=== PATIENT | female | born 1970 | race Caucasian/White ===

== ENCOUNTER → 2019-06-20 | Outpatient (CLI) | payer OTHER, SELFPAY ==
--- NOTE | 2019-06-25 08:18 | REPMRS ---
Patient History The patient states she has not had a clinical breast exam in over a year. Family history of unknown cancer in mother. Patient states that she has had 2 stereotactic breast bx's on the right , both were neg. Digital Woman Screen Mammo: June 20, 2019 - Exam #: [id number] Bilateral CC and MLO view(s) were taken. Technologist: Haley Haines, Technologist Prior study comparison: May 18, 2018, bilateral digital woman screen mammo, performed at [facility]. March 06, 2017, bilateral digital woman screen mammo, performed at [facility]. May 28, 2015, bilateral digital woman screen mammo, performed at [facility]. FINDINGS: The breast tissue is heterogeneously dense. This may lower the sensitivity of mammography. There are needle biopsy marker clips again noted in the right lateral breast. There is a moderate amount of heterogeneously dense fibroglandular tissue which is fairly symmetric. There is no interval development of dominant mass, architectural distortion, or grouped microcalcification typical of malignancy. There has been no change in the appearance of the mammogram from the prior studies. Assessment: BI-RADS/ACR category 2 mammogram. Benign Findings. Recommendation Routine screening mammogram of both breasts in 1 year (for women over age 40). This patient's Lifetime Breast Cancer RIsk is estimated at 9.1 %. This mammogram was interpreted with the aid of an FDA-approved computer-aided dectection system. Electronically Signed By: Hadley Veloz MD 06/25/19 0818
== END ==
LOC: M WHC 15:15
PROVIDERS: ATTEND Family Medicine
DX: Z12.31 Encounter for screening mammogram for malignant neoplasm of breast (principal); Z80.8 Family history of malignant neoplasm of other organs or systems; Z86.018 Personal history of other benign neoplasm

== ENCOUNTER → 2019-07-11 | Outpatient (REF) | payer OTHER | LOC: M LAB REF 13:30 | PROVIDERS: ATTEND Otolaryngology | DX: J32.4 Chronic pansinusitis (principal) ==

== ENCOUNTER → 2019-07-17 | Outpatient (CLI) | payer OTHER ==
--- NOTE | 2019-07-17 16:18 | REPVR ---
PROCEDURE INFORMATION: Exam: CT Maxillofacial Without Contrast, Sinus Exam date and time: 07/17/2019 3:58 PM Age: 48 years old Clinical indication: Sinusitis; Type not specified; Additional info: Chronic pansinusitis TECHNIQUE: Imaging protocol: CT Maxillofacial without contrast. Focus on the sinuses. Radiation optimization: All CT scans at this facility use at least one of these dose optimization techniques: automated exposure control; mA and/or kV adjustment per patient size (includes targeted exams where dose is matched to clinical indication); or iterative reconstruction. COMPARISON: No relevant prior studies available. FINDINGS: Frontal sinuses: Normal. No air-fluid levels. Ethmoid air cells: Normal. No air-fluid levels. Sphenoid sinuses: Normal. No air-fluid levels. Maxillary sinuses: Normal. No air-fluid levels. Ostiomeatal units are patent. Orbits: Orbits are normal. Globes are unremarkable. Nasal cavity/Septum: Unremarkable. Soft tissues: Unremarkable. Bones/joints: Unremarkable. IMPRESSION: Unremarkable sinuses. Electronically signed by: Rogers Pérez On 07/17/2019 16:18:02 PM
== END ==
LOC: M RAD 15:51
PROVIDERS: ATTEND Otolaryngology
DX: J32.4 Chronic pansinusitis (principal)

== ENCOUNTER → 2020-05-17 | Outpatient (CLI) | payer OTHER | LOC: M LABSMTC 09:10 | PROVIDERS: ATTEND Nurse Practitioner Family | DX: Z20.828 Contact with and (suspected) exposure to other viral communicable diseases (principal) ==

== ENCOUNTER 2020-12-24 13:19 | Emergency (ER) | payer OTHER ==
[~2020-12-24] VITALS: Ht 162.6 cm; Wt 75.0 kg
[2020-12-24] MEDS ORDERED: POLY510P14 PO (13:30)
[2020-12-24] MEDS ORDERED: TRAZ1TAB14 (13:30)
[2020-12-24] MEDS ORDERED: WELLTAB40 PO ×2 (13:30)
[2020-12-24] MEDS ORDERED: MM S100C PO (13:30)
--- NOTE | 2020-12-24 14:24 | REP ---
INDICATION: abd pain. COMPARISON: None. TECHNIQUE: Single AP supine view of the abdomen. FINDINGS: There is a 6.7 cm calcified mass in the pelvis on the right compatible with a large calcified uterine fibroid. There are bilateral tubal ligation clips in the pelvis. There are abdominal right upper quadrant surgical clips. There is a 5.6 mm calcification left lateral to the lumbar spine at the L1-2 level. Possibly a renal/ureteral calculus. There is a large volume of fecal residue throughout the ascending and descending colon. The skeletal structures are unremarkable. 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 IMPRESSION: Large volume of fecal residue throughout the colon. Calculus to the left of the spine, possibly renal/ureteral. Large calcified fibroid in the pelvis. Surgical clips in the abdominal right upper quadrant surgical clips in the pelvis. <Electronically signed by Neal Fonseca > 12/24/20 [id number]
[2020-12-24] MEDS ORDERED: ONDANSETRON 4MG/2ML VIAL IV ONE (14:40)
[2020-12-24] MEDS ORDERED: NS 1,000 ML IV ONE (14:40)
[2020-12-24] MEDS ORDERED: KETOROLAC 30 MG/ML 1ML VIAL IV ONE (14:40)
[2020-12-24] MEDS ORDERED: ISOVUE-370 76% 100ML VIAL As Ordered ONE (15:02)
[2020-12-24 15:13] LABS: BASO % 0.4 % (0.0-1.0); EOS % 0.3 % (0.0-3.0); HEMATOCRIT 34.8 % (36.0-47.0); HEMOGLOBIN 11.9 g/dl (12.0-15.5); LYMPH # 1.1 10^3/uL (1.5-5.0); LYMPH % 9.6 % (24.0-44.0); MEAN CORPUSCULAR HEMOGLOBIN 30.6 pg (27.0-33.0); MEAN CORPUSCULAR HGB CONC 34.2 g/dl (32.0-36.5); MEAN CORPUSCULAR VOLUME 89.5 fl (80.0-96.0); MONO # 0.5 10^3/uL (0.0-0.8); MONO % 4.2 % (2.0-8.0); NEUTROPHILS # 9.7 10^3/uL (1.5-8.5); NEUTROPHILS % 85.1 % (36.0-66.0); PLATELET COUNT, AUTOMATED 236 10^3/uL (150-450); RED BLOOD COUNT 3.89 10^6/uL (4.00-5.40); WHITE BLOOD COUNT 11.4 10^3/uL (4.0-10.0)
--- NOTE | 2020-12-24 15:33 | REP ---
INDICATION: severe LLQ pain, last bm 14 days, no bowel sounds. COMPARISON: None. TECHNIQUE: Standard helical technique after the intravenous administration of 100 cc Isovue 370. No oral bowel preparatory contrast was administered prior to the exam. FINDINGS: The lung bases are clear. The liver, spleen, pancreas, adrenal glands, and right kidney are within normal limits. Seen in the ureteropelvic junction on the left there is an oval-shaped 8 mm sized calcification. This is causing mild hydronephrosis and Maria nephric stranding. There is no evidence of additional renal or ureteral calculi. The abdominal aorta and para-aortic regions are within normal limits. Limited evaluation of the bowel loops and the mesenteries show no gross abnormalities. There is no evidence of free fluid or free air. Seen in the right hemipelvis there is a 5 cm sized partially calcified round structure which is abutting or arising from the uterine body. Bone window technique throughout the examination shows the osseous structures to be within normal limits. IMPRESSION: 1. There is a calculus in the left ureteropelvic junction as described above with resultant findings. 2. Likely calcified uterine myomatous change as described above. There are no priors comparison. <Electronically signed by Jimmy Vaughn > 12/24/20 [id number]
[2020-12-24 15:39] LABS: ALBUMIN 4.1 GM/DL (3.2-5.2); BILIRUBIN,DIRECT 0.1 MG/DL (0.0-0.2); BILIRUBIN,TOTAL 0.4 MG/DL (0.2-1.0); TOTAL PROTEIN 7.5 GM/DL (6.4-8.2)
[2020-12-24] MEDS ORDERED: FLEET OIL RETENTION ENEMA PR STA (16:01)
[2020-12-24] MEDS ORDERED: LACTULOSE 20 GM/30 ML SYRUP UD PO ONE (16:05)
[2020-12-24] MEDS ORDERED: TAMSULOSIN 0.4 MG CAP PO ONE (16:20)
[2020-12-24] MEDS ORDERED: MAGNESIUM CITRATE 300 ML BTL PO ONE (20:05)
[2020-12-24 22:24] VITALS: BP 123/66
[2020-12-24] MEDS ORDERED: LACT20EL PO (22:46)
[2020-12-24] MEDS ORDERED: ENEMENE PR (22:46)
[2020-12-24] MEDS ORDERED: FLOM0.4C39 PO (22:49)
--- NOTE | 2020-12-25 12:55 | ED PDOC ---
Post-Departure Follow-Up radiology repor tfaxed to [facility] Marichuy Iraheta MD Dec 25, 2020 12:55
== END 2020-12-24 23:11 | disposition home or self-care (01) ==
LOC: M ED 13:19
DX: K59.00 Constipation, unspecified (principal); N20.1 Calculus of ureter; Z87.42 Personal history of other diseases of the female genital tract; Z88.5 Allergy status to narcotic agent; Z79.899 Other long term (current) drug therapy
CPT/HCPCS: 74018; 74177; 80047; 80076; 81001; 83605; 83690; 85025; 87040; 87077; 87186; 96374; 96375; 99284; J1885; J2405; Q9967

== ENCOUNTER 2020-12-26 20:33 | Inpatient (IN) | payer OTHER ==
[~2020-12-26] VITALS: Ht 165.1 cm; Wt 77.9 kg
[~2020-12-26 20:33] MED LIST: ENEMENE PR; FLOM0.4C39 PO; LACT20EL PO; MM S100C PO; POLY510P14 PO; TRAZ1TAB14; WELLTAB40 PO
[2020-12-26] MEDS ORDERED: NS 1,000 ML IV ONE (21:25)
[2020-12-26] MEDS ORDERED: ONDANSETRON 4MG/2ML VIAL IV ONE (21:25)
[2020-12-26] MEDS ORDERED: KETOROLAC 30 MG/ML 1ML VIAL IV ONE (21:25)
[2020-12-26 22:14] LABS: BASO % 0.5 % (0.0-1.0); EOS # 0.1 10^3/uL (0.0-0.5); EOS % 1.8 % (0.0-3.0); HEMATOCRIT 30.6 % (36.0-47.0); HEMOGLOBIN 10.4 g/dl (12.0-15.5); LYMPH # 1.1 10^3/uL (1.5-5.0); MEAN CORPUSCULAR HEMOGLOBIN 30.8 pg (27.0-33.0); MEAN CORPUSCULAR VOLUME 90.5 fl (80.0-96.0); MONO # 0.6 10^3/uL (0.0-0.8); MONO % 7.6 % (2.0-8.0); NEUTROPHILS # 5.5 10^3/uL (1.5-8.5); NEUTROPHILS % 74.8 % (36.0-66.0); PLATELET COUNT, AUTOMATED 146 10^3/uL (150-450); RED BLOOD COUNT 3.38 10^6/uL (4.00-5.40); WHITE BLOOD COUNT 7.4 10^3/uL (4.0-10.0)
[2020-12-26 22:39] LABS: ALBUMIN 3.2 GM/DL (3.2-5.2); ALT/SGPT 23 U/L (12-78); BILIRUBIN,DIRECT 0.1 MG/DL (0.0-0.2); BILIRUBIN,TOTAL 0.5 MG/DL (0.2-1.0); BLOOD UREA NITROGEN 12 MG/DL (7-18); CARBON DIOXIDE LEVEL 23 MEQ/L (21-32); CHLORIDE LEVEL 108 MEQ/L (98-107); CREATININE FOR GFR 1.67 MG/DL (0.55-1.30); GLOMERULAR FILTRATION RATE 34.4 (>51); GLUCOSE, FASTING 99 MG/DL (70-100); LIPASE 93 U/L (73-393); POTASSIUM SERUM 3.6 MEQ/L (3.5-5.1); SODIUM LEVEL 139 MEQ/L (136-145); TOTAL PROTEIN 6.1 GM/DL (6.4-8.2)
[2020-12-26] MEDS ORDERED: ISOVUE-370 76% 100ML VIAL As Ordered ONE (22:51)
--- NOTE | 2020-12-26 23:26 | REPVR ---
PROCEDURE INFORMATION: Exam: CT Abdomen And Pelvis With Contrast Exam date and time: 12/26/2020 10:55 PM Age: 50 years old Clinical indication: Abdominal pain; Localized; Left lower quadrant (llq); Additional info: Llq pain; HX of kidney stones TECHNIQUE: Imaging protocol: Computed tomography of the abdomen and pelvis with contrast. Radiation optimization: All CT scans at this facility use at least one of these dose optimization techniques: automated exposure control; mA and/or kV adjustment per patient size (includes targeted exams where dose is matched to clinical indication); or iterative reconstruction. Contrast material: ISOVUE 370; Contrast volume: 100 ml; Contrast route: INTRAVENOUS (IV); COMPARISON: CT ABD/PEL W/IV CONTRAST ONLY 12/24/2020 3:09 PM FINDINGS: Lungs: Minimal bibasilar fibro-atelectatic change. Liver: Normal. No mass. Gallbladder and bile ducts: Status post cholecystectomy. Pancreas: Normal. No ductal dilation. Spleen: Normal. No splenomegaly. Adrenal glands: Normal. No mass. Kidneys and ureters: Minimal nonobstructing left renal calculus in the lower pole. Delayed left nephrogram with persistent contrast in the left renal collecting system since the prior study with moderate left hydronephrosis which extends to a proximal left ureteral calculus just below the UPJ measuring 7 x 7 x 5 mm which is similar to the prior study. There is a left renal cyst measuring up to 5 x 8 mm which is too small to characterize. Stomach and bowel: Mild stool throughout much of the colon. Appendix: There are no changes of appendicitis. A normal appendix is not seen. Intraperitoneal space: Unremarkable. No free air. No significant fluid collection. Vasculature: Incidental note of an accessory retroaortic left renal vein. Lymph nodes: Unremarkable. No enlarged lymph nodes. Urinary bladder: Unremarkable as visualized. Reproductive: Calcified uterine fibroid measuring 5.6 cm. Bones/joints: Unremarkable. No acute fracture. Soft tissues: Unremarkable. IMPRESSION: 1. Proximal left ureteral calculus just below the UPJ measuring 7 x 7 x 5 mm with obstructive uropathy of the left upper tract which is similar to 12/24/2020. 2. Fibroid uterus. 3. Minimal nonobstructing left renal calculus in the lower pole. 4. Status post cholecystectomy. COMMENTS: Consistent with the [employer]'s Incidental Findings Committee white paper (J Am Sigrid Radiol 2018): Any incidental renal lesion less than 1 cm or classified as too small to characterize, or any incidental cystic renal lesion characterized as simple-appearing, is likely benign. No follow-up imaging is recommended for these lesions per consensus recommendations based on imaging criteria. Electronically signed by: Armani Reyna On 12/26/2020 23:25:45 PM
[2020-12-27] VITALS (11 sets, daily range): BP systolic 108–129; BP diastolic 56–82; O2SAT 91–94
[2020-12-27 01:03] LABS: RSV AMPLIFICATION NEGATIVE (NEGATIVE)
[2020-12-27] MEDS ORDERED: MOM 30ML SUSPENSION UDC PO PRN (01:05)
[2020-12-27] MEDS ORDERED: MORPHINE 2 MG/ML 1ML VIAL (J2270) IV PRN ×2 (01:05→17:30)
[2020-12-27] MEDS ORDERED: MAALOX 30 ML SUSP *UDC PO PRN (01:05)
--- NOTE | 2020-12-27 01:09 | HPEPDOC ---
[facility] Medical History & Physical Date of Admission Dec 27, 2020 Date of Service: Dec 27, 2020 Other Provider [facility] Attending Physician: SANTO WATSON MD History and Physical TIME OF SERVICE: 327am CHIEF COMPLAINT: constipation HISTORY OF PRESENT ILLNESS: presented to our ER w c/o back pain on Dec 24 and was diagnosed with a kidney stone and sent home with Flomax. Today she returned w c/o constipation along with 8/10 in severity intermittent sharp and stabbing left lower abdominal pain that improved with ketorolac and left lower abdominal pain. She denied having n/v/d or blood in the urine. She was diagnosed with LIANA associated with obstructive uropathy and will have a stent placed in a few hours. REVIEW OF SYSTEMS: 10-point review of systems negative except as listed in HPI PAST MEDICAL/ SURGICAL HISTORY: Newly diagnosed kidney stone, Anxiety, Iron deficiency, Vitamin D deficiency, LEEP, Cholecystectomy, Fibroid uterus SOCIAL HISTORY: She doesnt smoke tobacco or use recreational drugs FAMILY HISTORY: She denies having a family history of kidney stones ALLERGIES: Please see below. HOME MEDICATIONS: Please see below. PHYSICAL EXAMINATION: Vital Signs Date Time Temp Pulse Resp B/P (MAP) Pulse Ox O2 Delivery O2 Flow Rate FiO2 12/26/20 20:56 99.3 79 18 130/78 (95) 100 Room Air GENERAL APPEARANCE: well-nourished and developed / NAD / asleep but arousable w vocal stimuli CARDIOVASCULAR: RRR/NMRG LUNGS: CTAB on RA / not coughing ABDOMEN: contour flat /soft slightly tender with palpation of the left lower quadrant MUSCULOSKELETAL: ROMIx 4 / no CVA tenderness INTEGUMENT: + tatoos NEUROLOGICAL: speech not dysarthric PSYCHIATRIC: A&O / able to understand and follow all commands LABORATORY DATA: IMAGING: CT abd/pelvis IMPRESSION: 1. Proximal left ureteral calculus just below the UPJ measuring 7 x 7 x 5 mm with obstructive uropathy of the left upper tract which is similar to 12/24/2020. 2. Fibroid uterus. 3. Minimal nonobstructing left renal calculus in the lower pole. 4. Status post cholecystectomy. MICROBIOLOGY: Respiratory panel ASSESSMENT: is a 50 yr old F who is admitted for management of left sided obstructive uropathy associated with LIANA. PLAN: 1 Left sided obstructive uropathy Plan: admit to medical floor / NPO / IVF/ c/w Morphine for pain (avoiding NSAIDs bc of LIANA) / f/u w for stent placement in the morning 2 LIANA Likely post renal Plan: IVF / f/u BMP 3 Bicytopenia Plan: trend CBC / f/u w PCP 4 Anxiety Plan: c/w trazadone 5 Constipation Plan: hold iron which can worsen her constipation for now / c/w lactulose, add senna and docusate DVT px w TEDs/SCDs (Kathryn Prediction Score to determine the in-patient risk of VTE & need for anticoagulation is 0. Individuals with a Kathryn Score <4 are low risk of VTE and thromboprophylaxis should be considered on a [id number] basis while individuals with a Kathryn score >4 are high risk for VTE and will likely benefit from thromboprophylaxis unless the patient has major contraindication such as major bleeding or thrombocytopenia). Dispo: home after at least 2 midnights stay Home Medications Scheduled Bupropion HCl (Wellbutrin Xl) 300 Mg Tab.er.24h, 300 MG PO DAILY Cholecalciferol (Vitamin D3) (Vitamin D3) 50 Mcg Capsule, 50 MCG PO DAILY Ferrous Sulfate (Ferrous Sulfate) 325 Mg Tablet.dr, 325 MG PO DAILY Lactulose (Lactulose) 10 Gm/15 Ml Solution, 30 ML PO TID Multivitamins (Thera M Plus Tablet) 1 Each Tablet, 1 TAB PO DAILY Sodium Phosphate,Coffey-Dibasic (Fleet Enema) 133 Ml Enema, 1 KELVIN [place] BID Tamsulosin HCl (Flomax) 0.4 Mg Capsule, 0.4 MG PO DAILY Trazodone HCl (Trazodone HCl) 150 Mg Tablet, 150 MG PO QHS Scheduled PRN Acetaminophen (Acetaminophen) 325 Mg Tablet, 650 MG PO Q4H PRN for PAIN LEVEL 1- 4 Albuterol Sulfate (Proair Hfa) 8.5 Gm Hfa.aer.ad, 2 PUFF INH Q4H PRN for SHORTNESS OF BREATH Allergies Coded Allergies: No Known Allergies (Unverified , 12/24/20) A-FIB/CHADSVASC A-FIB History Current/History of A-Fib/PAF?: No Current PO Anticoag Therapy: No SANTO WATSON MD Dec 27, 2020 01:09
[2020-12-27] MEDS ORDERED: VITMTA PO (01:30)
[2020-12-27] MEDS ORDERED: PROAAER10 INH (01:30)
[2020-12-27] MEDS ORDERED: TRAZ1TAB14 PO (01:30)
[2020-12-27] MEDS ORDERED: LACT20EL PO (01:30)
[2020-12-27] MEDS ORDERED: FLOM0.4C39 PO (01:30)
[2020-12-27] MEDS ORDERED: ACET1TAB55 PO (01:30)
[2020-12-27] MEDS ORDERED: FLEEENE12 PR (01:30)
[2020-12-27] MEDS: LR 1,000 ML IV SCH ×3 (01:30→14:56)
[2020-12-27] MEDS ORDERED: D32000CA PO (01:32)
[2020-12-27] MEDS ORDERED: FERR325T3 PO (01:32)
[2020-12-27] MEDS ORDERED: HOME MED LIST COMPLETE! XX SCH (01:35)
[2020-12-27] MEDS: traZODone 50 MG TAB PO SCH ×2 (02:55→22:24)
[2020-12-27] MEDS ORDERED: ALBUTEROL 90 MCG/ACT 8GM HFA INHALER INH PRN (02:55)
[2020-12-27] MEDS ORDERED: SENOKOT S TAB PO PRN (04:00)
[2020-12-27 06:08] LABS: HEMATOCRIT 26.4 % (36.0-47.0); MEAN CORPUSCULAR HEMOGLOBIN 30.8 pg (27.0-33.0); MEAN CORPUSCULAR HGB CONC 34.1 g/dl (32.0-36.5); MEAN CORPUSCULAR VOLUME 90.4 fl (80.0-96.0); PLATELET COUNT, AUTOMATED 145 10^3/uL (150-450); RED BLOOD COUNT 2.92 10^6/uL (4.00-5.40); WHITE BLOOD COUNT 5.6 10^3/uL (4.0-10.0)
[2020-12-27 06:21] LABS: INR 1.22; PROTHROMBIN TIME 15.8 SECONDS (12.7-14.5)
[2020-12-27 06:33] LABS: CALCIUM LEVEL 7.6 MG/DL (8.5-10.1); CREATININE FOR GFR 1.63 MG/DL (0.55-1.30); GLOMERULAR FILTRATION RATE 35.4 (>51)
[2020-12-27] MEDS ORDERED: CONRAY-60 60% 50ML VIAL (Q9961) As Ordered ONE (08:12)
[2020-12-27] MEDS: buPROPion **XL** TABLET 150MG (WELLBUTRIN XL) PO SCH (08:32)
[2020-12-27] MEDS: TAMSULOSIN 0.4 MG CAP PO SCH (08:32)
[2020-12-27] MEDS: FLEET ENEMA PR SCH ×2 (09:00→21:00)
[2020-12-27] MEDS: LACTULOSE 20 GM/30 ML SYRUP UD PO SCH ×3 (09:00→22:21)
[2020-12-27] MEDS ORDERED: MIDAZOLAM INJ 2MG/2ML VIAL (J2250 PER 1MG) As Ordered ONE (09:44)
[2020-12-27] MEDS ORDERED: ONDANSETRON 4MG/2ML VIAL As Ordered ONE (09:45)
[2020-12-27] MEDS ORDERED: fentaNYL 100 MCG/2 ML INJECTION (J3010) As Ordered ONE ×2 (09:45→14:52)
[2020-12-27] MEDS ORDERED: dexameTHASONE 4 MG/ML 1ML VIAL (J1100 PER 1MG) As Ordered ONE (09:45)
[2020-12-27] MEDS ORDERED: LIDOCAINE 2% 100MG/5ML SDV (FOR ANES.) As Ordered ONE (09:45)
--- NOTE | 2020-12-27 11:23 | IPNPDOC ---
Text Note Date of Service The patient was seen on 12/27/20. NOTE Subjective: Patient is a 50 year old female with a PMHx of Anxiety, Iron deficiency, Vitamin D deficiency who presented to the emergency room with compla ints of back pain. Patient was recently in the ER on 12/24 with a newly diagnosed kidney stone and was sent home with Flomax. Imaging currently has revealed an obstructing left ureteral stone. Patient has returned with worsening pain. Patient was admitted to the hospital service for further evaluation of her kidney stone. Urology was called on consultation for likely stenting Patient was seen and examined at the bedside. Patient denies any nausea, vomiting, chest pain, shortness breath, palpitations. Reports some left-sided pain that has been radiating to her left groin. Denies any urinary discomfort. Objective: Vitals (See below) General: Lying in bed, appears comfortable, AAOx3 HEENT: NC, AT CVS: RRR, +S1S2 Lungs: Fair air entry b/l, -w/r/r Abdomen: Soft, ND, NT, mild left flank tenderness Extremities: - Edema, - Calf tenderness Imaging: CT abdomen / pelvis 12/26: 1. Proximal left ureteral calculus just below the UPJ measuring 7 x 7 x 5 mm with obstructive uropathy of the left upper tract which is similar to 021. 2. Fibroid uterus. 3. Minimal nonobstructing left renal calculus in the lower pole. 4. Status post cholecystectomy. Assessment and plan: Left sided obstructive uropathy - Patient reports pain persists - Remains hemodynamically stable and afebrile - No leukocytosis - Imaging noted above - c/w Morphine / Zofran for symptomatic control - c/w IV fluid hydration - c/w Tamsulosin - Urology on consult; plan for cystoscopy and likely stenting this morning LIANA - possibly 2/2 post-renal etiology - Will check urine electrolytes - UA negative for infection - c/w IV fluids Normocytic anemia - Hg remains stable - No evidence of bleeding - Will resume iron supplementation on discharge Thrombocytopenia - No evidence of bleeding - Will continue to follow trend - Will check hepatitis panel Anxiety / Depression - c/w Trazodone, Bupropion Constipation - c/w Bowel regimen as ordered DVT prophylaxis - c/w TEDs/Sequentials Disposition: - Anticipate DC home tomorrow VS,Jace, I+O VS, Fishbone, I+O Laboratory Tests 12/26/20 21:07 12/27/20 05:45 Vital Signs Date Time Temp Pulse Resp B/P (MAP) Pulse Ox O2 Delivery O2 Flow Rate FiO2 12/27/20 06:00 94 Room Air 12/27/20 06:00 97.3 76 18 108/56 (73) I&O- Last 24 Hours up to 6 AM 12/27/20 06:00 Intake Total 1800 ml Output Total 400 ml Balance 1400 ml MOLINA PORTER MD Dec 27, 2020 11:23
--- NOTE | 2020-12-27 12:13 | CR.PDOC ---
General Date of Consultation: Dec 27, 2020 Referring Provider: SANTO WATSON MD Consultation REASON FOR CONSULTATION/CHIEF COMPLAINT: Left 7 x 7 mm UPJ stone HISTORY OF PRESENT ILLNESS: The patient is a 50-year-old female who was admitted for her first stone episode. She originally presented to the ER with complaints of left back pain on December 24 and was diagnosed with a 7 x 7 mm left UPJ stone and she was sent home with Flomax. She was also having severe constipation at the time. She was doing well for a little while and then came back in last night with worsening pain again. The pain is in her left flank and left lower quadrant. She did have some associated nausea but denied any fever or chills. She was able to move her bowels yesterday. She denies any previous urologic history. The CT scan from 12/26/2020 does show a 7 x 7 mm left UPJ stone, simple left renal cyst, and a nonobstructing left lower pole stone but unfortunately I do not have access to synapse now so I was unable to see how big it is and it was not read how big it was on the CT scan. Her urinalysis only showed 1 white blood cell 1 red blood cell per high-power field. She did have a temperature last night of 99.3. Her creatinine was elevated at 1.63 on admission and this morning was 1.67. I do not have a baseline. She denies any gross hematuria and has only had one UTI in her lifetime. She has no significant irritative or obstructive voiding symptoms. ALLERGIES: Please see below. HOME MEDICATIONS: Please see below. PAST MEDICAL HISTORY: -Anxiety -Iron deficiency -Vitamin D deficiency -Fibroid uterus PAST SURGICAL HISTORY: -Cholecystectomy -LEEP FAMILY HISTORY: No family history of kidney stones SOCIAL HISTORY: She is not and does not smoke cigarettes or use recreational drugs REVIEW OF SYSTEMS: She did have constipation last week but this resolved. A 12 system review was otherwise negative except for what is in the HPI. PHYSICAL EXAMINATION: VITAL SIGNS: Please see below. GENERAL APPEARANCE: Well-developed well-nourished female in no apparent respiratory distress HEENT: Normocephalic atraumatic PERRLA EOMI RESPIRATORY: . Clear to auscultation and percussion CARDIOVASCULAR: Regular rate and rhythm ABDOMEN: Soft with some mild tenderness in the left lower quadrant without any rebound or guarding EXTREMITIES: No cyanosis clubbing or edema NEUROLOGICAL: Nonfocal PSYCHIATRIC: Alert and oriented times LABORATORY DATA: Please see below. ASSESSMENT/PLAN: -7 mm left UPJ stone measuring 7 x 7 x 5 millimeters with obstructive uropathy. There is also a nonobstructing left lower pole stone. We will proceed with cystoscopy, left ureteroscopy left laser lithotripsy versus stone basketing and left stent placement. We discussed all different options, alternatives, risk, and benefits. We discussed that there is a high probability that even if I go after the stone that I may not be able to get it because of its location since this can get pushed back into the kidney and with a nondilated ureter that that becomes very difficult to operate on. We discussed if that happens that we will leave the stent in place and then she will be seen back for either ureteroscopy or ESWL in the future. We discussed the major risks which included but was not limited to the risks of general anesthesia, reactions to medication, bleeding, infection, injury to the urethra/bladder/ureter, pain from the stent, need for stent removal, and possible need for reoperation. Informed consent was obtained both verbal and written form. -Patient also understands that she has another nonobstructing stone in the left lower pole region Vital Signs/I&O Vital Signs Date Time Temp Pulse Resp B/P (MAP) Pulse Ox O2 Delivery O2 Flow Rate FiO2 12/27/20 11:15 97.9 87 18 129/79 (96) 96 Room Air I&O- Last 24 Hours up to 6 AM 12/27/20 06:00 Intake Total 1800 ml Output Total 400 ml Balance 1400 ml Laboratory Data Labs 24H Laboratory Tests 2 12/26/20 21:07: Immature Granulocyte % (Auto) 0.3, Neutrophils (%) (Auto) 74.8H, Lymphocytes (%) (Auto) 15.0L, Monocytes (%) (Auto) 7.6, Eosinophils (%) (Auto) 1.8, Basophils (%) (Auto) 0.5, Neutrophils # (Auto) 5.5, Lymphocytes # (Auto) 1.1L, Monocytes # (Auto) 0.6, Eosinophils # (Auto) 0.1, Basophils # (Auto) 0.0, Nucleated Red Blood Cells % (auto) 0.0, Anion Gap 8, Glomerular Filtration Rate 34.4L, Calcium Level 8.0L, Total Bilirubin 0.5, Direct Bilirubin 0.1, Aspartate Amino Transf (AST/SGOT) 21, Alanine Aminotransferase (ALT/SGPT) 23, Alkaline Phosphatase 41L, Total Protein 6.1L, Albumin 3.2#, Albumin/Globulin Ratio 1.1L, Lipase 93 12/26/20 23:11: Lactic Acid Level 0.5 12/26/20 23:37: Urine Color STRAW, Urine Appearance HAZY, Urine pH 9.0, Urine Specific [place] 1.002, Urine Protein NEGATIVE, Urine Glucose (UA) NEGATIVE, Urine Ketones TRACEH, Urine Blood NEGATIVE, Urine Nitrite NEGATIVE, Urine Bilirubin NEGATIVE, Urine Urobilinogen 0.2, Urine Leukocyte Esterase NEGATIVE, Urine WBC (Auto) 1, Urine RBC (Auto) 1, Urine Hyaline Casts (Auto) 0, Urine Bacteria (Auto) NEGATIVE, Urine Squamous Epithelial Cells 7, Urine Sperm (Auto) 12/27/20 00:16: Coronavirus (COVID-19)(PCR) NEGATIVE, Influenza Type A (RT-PCR) NEGATIVE, Influenza Type B (RT-PCR) NEGATIVE, Respiratory Syncytial Virus (PCR) NEGATIVE 12/27/20 05:45: Nucleated Red Blood Cells % (auto) 0.0, Prothrombin Time 15.8H, Prothromb Time International Ratio 1.22, Anion Gap 4L, Glomerular Filtration Rate 35.4L, Calcium Level 7.6L CBC/BMP Laboratory Tests 12/26/20 21:07 12/27/20 05:45 Allergies Coded Allergies: No Known Allergies (Unverified , 12/24/20) Home Medications Scheduled Bupropion HCl (Wellbutrin Xl) 300 Mg Tab.er.24h, 300 MG PO DAILY, (Reported) Cholecalciferol (Vitamin D3) (Vitamin D3) 50 Mcg Capsule, 50 MCG PO DAILY, (Reported) Ferrous Sulfate (Ferrous Sulfate) 325 Mg Tablet.dr, 325 MG PO DAILY, (Reported) Lactulose (Lactulose) 10 Gm/15 Ml Solution, 30 ML PO TID, (Reported) Multivitamins (Thera M Plus Tablet) 1 Each Tablet, 1 TAB PO DAILY, (Reported) Sodium Phosphate,Meagher-Dibasic (Fleet Enema) 133 Ml Enema, 1 KELVIN [place] BID, (Reported) Tamsulosin HCl (Flomax) 0.4 Mg Capsule, 0.4 MG PO DAILY, (Reported) Trazodone HCl (Trazodone HCl) 150 Mg Tablet, 150 MG PO QHS, (Reported) Scheduled PRN Acetaminophen (Acetaminophen) 325 Mg Tablet, 650 MG PO Q4H PRN for PAIN LEVEL 1- 4, (Reported) Albuterol Sulfate (Proair Hfa) 8.5 Gm Hfa.aer.ad, 2 PUFF INH Q4H PRN for SHORTNESS OF BREATH, (Reported) LA[place] DELANEY MD Dec 27, 2020 12:13
[2020-12-27] MEDS ORDERED: MORPHINE 2 MG/ML 1ML VIAL (J2270) As Ordered ONE (12:42)
[2020-12-27] MEDS ORDERED: HYDROMORPHONE HCL 0.5 MG/ 0.5 ML SYRINGE (J1170 PER 1) IV ONE ×2 (12:55→18:05)
[2020-12-27] MEDS ORDERED: ceFAZolin 2 GM/D5W 50 ML IV BAG (J0690 PER 500MG) As Ordered ONE (13:18)
[2020-12-27] MEDS ORDERED: ACETAMINOPHEN 1000MG 100ML IV BTL (OFIRMEV) (J0131 PER 10MG) As Ordered ONE (13:35)
[2020-12-27] MEDS ORDERED: propofoL 200 MG/20 ML VIAL As Ordered ONE (13:35)
[2020-12-27] MEDS ORDERED: LIDOCAINE 2% 5ML JELLY UROJET As Ordered ONE (14:11)
--- NOTE | 2020-12-27 14:27 | ROOPDOC ---
[facility] Report Of Operation Report of Operation DATE OF PROCEDURE: 12/27/20 PREPROCEDURE DIAGNOSES: 5 mm left UPJ stone and lower pole stone POSTPROCEDURE DIAGNOSES: Same PROCEDURE PERFORMED: Cystoscopy, left ureteroscopy, laser lithotripsy and stone basketing, and double-J ureteral stent placement with a 6 Romanian SURGEON: Poppy Delaney MD ANESTHESIA: General ESTIMATED BLOOD LOSS: Approximately 0 mL. COMPLICATIONS: None REMARKS: Both stones the UPJ and the lower pole stone were both laser lithotripsied into small fragments SPECIMENS REMOVED: Stone fragments PROCEDURE NOTE: The patient came into the emergency room with left flank pain and left lower quadrant pain found to have a 7 mm left UPJ stone. Since this was her second visit to the emergency room it was decided to bring her to the operating room for stone management. Informed consent was obtained both verbal and written form. DESCRIPTION OF PROCEDURE: The patient was brought into the operating room. Sequential compression devices were in place and preoperative antibiotics have been given. Anesthesia was induced and she was then placed in the lithotomy position. Careful attention was paid that her pressure points were well padded and protected. She was prepped and draped in usual fashion. A 21 Romanian cystoscope was inserted. The urethra was open without any lesions or strictures. Both ureteral orifices were seen and there was no evidence of stones, erythematous patches, lesions, or other abnormalities in the bladder. Under fluoroscopic guidance a 0.035 guidewire was placed in the left ureteral orifice up to the kidney and then a second wire was placed. The ureteral reentry catheter was placed over the second wire and a flexible ureteroscope was passed through this. The UPJ stone was seen and this was pushed back into the kidney. Using the laser fiber the stone was broken into the lots of small fragments. In the lower pole was also the second stone seen and this was also broken into small fragments. A basket was placed and some stone fragments were removed. Next a 6 Romanian double-J ureteral stent was placed and unfortunately there was not a good curl up in the kidney but I did a retrograde pyelogram and the stent was going into the lower pole. I tried to reposition it several times but it just did not want to curl but since it was in the kidney it was felt that this was adequate. The patient tolerated the procedure well and was returned to the recovery room in stable condition. Our office will contact her to have cystoscopy and stent removal. POPPY DELANEY MD Dec 27, 2020 14:27
[2020-12-27] MEDS: fentaNYL 100 MCG/2 ML INJECTION (J3010) IV PRN ×2 (14:50→14:57)
--- NOTE | 2020-12-27 15:03 | REP ---
INDICATION: STENT PLACEMENT. COMPARISON: None. TECHNIQUE: KUB FINDINGS: A ureteral stent and guide where are in place with the proximal portions in the left renal pelvis and the distal portions in the bladder. No calculi are visible. IMPRESSION: Ureteral stent and wire in place. <Electronically signed by Phong Laureano > 12/27/20 1500
[2020-12-27] MEDS ORDERED: ONDANSETRON 4MG/2ML VIAL IV PRN (15:15)
[2020-12-27] MEDS ORDERED: HYDROMORPHONE HCL 0.5 MG/ 0.5 ML SYRINGE (J1170 PER 1) IV PRN (15:15)
[2020-12-27] MEDS ORDERED: LR 1,000 ML IV SCH (15:15)
[2020-12-27] MEDS ORDERED: oxyCODONE 5MG TAB PO PRN (15:15)
[2020-12-27 16:12] LABS: OSMOLALITY URINE 186 MOSM/KG (50-1400)
[2020-12-27 16:37] LABS: CREATININE,RANDOM URINE < 13.0 MG/DL; SODIUM,RANDOM URINE 72 MEQ/L
[2020-12-27] MEDS: ACETAMINOPHEN TAB 650MG DOSE (2X325MG) PO PRN (22:23)
[2020-12-28 02:00] VITALS: BP 125/72
[2020-12-28] MEDS ORDERED: LR 1,000 ML IV SCH (04:00)
[2020-12-28 06:00] VITALS: BP 101/51
[2020-12-28 06:29] LABS: BASO % 0.5 % (0.0-1.0); EOS # 0.2 10^3/uL (0.0-0.5); EOS % 2.8 % (0.0-3.0); HEMATOCRIT 27.8 % (36.0-47.0); HEMOGLOBIN 9.3 g/dl (12.0-15.5); LYMPH % 16.1 % (24.0-44.0); MEAN CORPUSCULAR HEMOGLOBIN 30.4 pg (27.0-33.0); MEAN CORPUSCULAR HGB CONC 33.5 g/dl (32.0-36.5); MEAN CORPUSCULAR VOLUME 90.8 fl (80.0-96.0); MONO # 0.4 10^3/uL (0.0-0.8); MONO % 6.2 % (2.0-8.0); NEUTROPHILS # 4.6 10^3/uL (1.5-8.5); NEUTROPHILS % 74.1 % (36.0-66.0); PLATELET COUNT, AUTOMATED 147 10^3/uL (150-450); RED BLOOD COUNT 3.06 10^6/uL (4.00-5.40); WHITE BLOOD COUNT 6.2 10^3/uL (4.0-10.0)
[2020-12-28] MEDS: ACETAMINOPHEN TAB 650MG DOSE (2X325MG) PO PRN (06:36)
[2020-12-28 06:51] LABS: CALCIUM LEVEL 8.2 MG/DL (8.5-10.1); CREATININE FOR GFR 1.09 MG/DL (0.55-1.30); GLOMERULAR FILTRATION RATE 56.3 (>51); MAGNESIUM LEVEL 2.2 MG/DL (1.8-2.4); POTASSIUM SERUM 4.3 MEQ/L (3.5-5.1)
[2020-12-28] MEDS: TAMSULOSIN 0.4 MG CAP PO SCH (08:25)
[2020-12-28] MEDS: buPROPion **XL** TABLET 150MG (WELLBUTRIN XL) PO SCH (08:25)
[2020-12-28] MEDS: LACTULOSE 20 GM/30 ML SYRUP UD PO SCH (08:25)
[2020-12-28] MEDS ORDERED: PYRI1TAB5 PO (08:45)
[2020-12-28] MEDS ORDERED: PHENAZOPYRIDINE 100 MG TAB PO SCH (09:00)
[2020-12-28] MEDS: FLEET ENEMA PR SCH (10:17)
[2020-12-28 11:21] LABS: HEPATITIS B SURFACE ANTIGEN NEGATIVE (NEGATIVE)
[2020-12-28 11:35] LABS: HEPATITIS C VIRUS ABY INDEX 0.1 INDEX (<0.8)
[2020-12-28 11:36] LABS: HEPATITIS B CORE ANTIBODY IGM NEGATIVE (NEGATIVE)
[2020-12-28 11:38] LABS: HEPATITIS A ANTIBODY IGM NEGATIVE (NEGATIVE)
--- NOTE | 2020-12-28 11:49 | DS.PDOC ---
Discharge Summary General Date of Admission Dec 27, 2020 at 01:05 Date of Discharge 12/28/2020 Discharge Summary PROCEDURES PERFORMED DURING STAY: Cystoscopy, left ureteroscopy, laser lithotripsy and stone basketing, and double-J ureteral stent placement with a 6 Kazakh on 12/27/[address] Hess ADMITTING DIAGNOSES / DISCHARGE DIAGNOSES: Left sided obstructive uropathy s/p LIANA - possibly 2/2 post-renal etiology Normocytic anemia Thrombocytopenia Anxiety / Depression Constipation DVT prophylaxis COMPLICATIONS/CHIEF COMPLAINT: Left sided abdominal / flank / groin pain HISTORY OF PRESENT ILLNESS: Patient is a 50 year old female with a PMHx of Anxiety, Iron deficiency, Vitamin D deficiency who presented to the emergency room with complaints of back pain. Patient was recently in the ER on 12/24 with a newly diagnosed kidney stone and was sent home with Flomax. Imaging currently has revealed an obstructing left ureteral stone. Patient has returned with worsening pain. Patient was admitted to the hospital service for further evaluation of her kidney stone. Urology was called on consultation for likely stenting Patient was seen and examined at the bedside. Patient reports that her pain has improved. Denies any nausea, vomiting, chest pain, shortness breath, palpitations. Patient denies any urinary discomfort. Denies any constipation. HOSPITAL COURSE: Left sided obstructive uropathy - Patient has improvement of her abdominal pain - Continues to remain hemodynamically stable with any fevers - No leukocytosis - Imaging noted above - s/p Morphine / Zofran for symptomatic control - s/p IV fluid hydration - c/w Tamsulosin - s/p Cystoscopy, left ureteroscopy, laser lithotripsy and stone basketing, and double-J ureteral stent placement with a 6 Kazakh on 12/27/[address] Hess - Urology on consult; appreciate their input - Discussed with urology will have outpatient follow-up within the next 7 days for stent removal - Will also have outpatient follow-up with primary care provider within the next 7 days s/p LIANA - possibly 2/2 post-renal etiology - Cr has improved - FENa - suggestive of post renal etiology - UA negative for infection - Will DC IV fluids Normocytic anemia - Hg remains stable - No evidence of bleeding - Will resume iron supplementation on discharge Thrombocytopenia - No evidence of bleeding - Counts remain stable - Hepatitis panel negative - Will have outpatient follow-up with primary care provider within the next 7 days Anxiety / Depression - c/w Trazodone, Bupropion Constipation - c/w Bowel regimen as ordered DVT prophylaxis - c/w TEDs/Sequentials DISCHARGE MEDICATIONS: Please see below. ALLERGIES: Please see below. PHYSICAL EXAMINATION ON DISCHARGE: Vitals (See below) General: Patient is sitting up in bed watching television appears to be comfortable without any acute distress, is awake, alert, oriented 3 HEENT: Normocephalic and atraumatic CVS: +S1S2 Lungs: Fair air entry b/l, no wheezing, rales or rhonchi Abdomen: Abdomen remains soft without any appreciated distention or tenderness Extremities: No evidence of edema LABORATORY DATA: Please see below. IMAGING: CT abdomen / pelvis 12/26: 1. Proximal left ureteral calculus just below the UPJ measuring 7 x 7 x 5 mm with obstructive uropathy of the left upper tract which is similar to 12/24/2020. 2. Fibroid uterus. 3. Minimal nonobstructing left renal calculus in the lower pole. 4. Status post cholecystectomy. ACTIVITY: [As tolerated]. DISCHARGE PLAN: Follow-up with primary care provider, and urology within the next 7 days Remain compliant with treatment plan and medications Return to the ER if you experience any problems DISPOSITION: Home DISCHARGE CONDITION: [Stable]. TIME SPENT ON DISCHARGE: 35 minutes. Vital Signs/I&Os Vital Signs Date Time Temp Pulse Resp B/P (MAP) Pulse Ox O2 Delivery O2 Flow Rate FiO2 12/28/20 06:00 97.2 65 18 101/51 (68) 94 Room Air 12/27/20 15:00 2.0 I&O- Last 24 Hours up to 6 AM 12/28/20 05:59 Intake Total 4840 ml Output Total 3300 ml Balance 1540 ml Laboratory Data Labs 24H Laboratory Tests 2 12/27/20 14:40: 12/27/20 15:55: Urine Osmolality 186, Urine Random Creatinine < 13.0, Urine Random Sodium 72 12/28/20 05:53: Immature Granulocyte % (Auto) 0.3, Neutrophils (%) (Auto) 74.1H, Lymphocytes (%) (Auto) 16.1L, Monocytes (%) (Auto) 6.2, Eosinophils (%) (Auto) 2.8, Basophils (%) (Auto) 0.5, Neutrophils # (Auto) 4.6, Lymphocytes # (Auto) 1.0L, Monocytes # (Auto) 0.4, Eosinophils # (Auto) 0.2, Basophils # (Auto) 0.0, Nucleated Red Blood Cells % (auto) 0.0, Anion Gap 5L, Glomerular Filtration Rate 56.3, Calcium Level 8.2L, Magnesium Level 2.2 CBC/BMP Laboratory Tests 12/28/20 05:53 Discharge Medications Scheduled Bupropion HCl (Wellbutrin Xl) 300 Mg Tab.er.24h, 300 MG PO DAILY, (Reported) Cholecalciferol (Vitamin D3) (Vitamin D3) 50 Mcg Capsule, 50 MCG PO DAILY, (Reported) Ferrous Sulfate (Ferrous Sulfate) 325 Mg Tablet.dr, 325 MG PO DAILY, (Reported) Lactulose (Lactulose) 10 Gm/15 Ml Solution, 30 ML PO TID, (Reported) Multivitamins (Thera M Plus Tablet) 1 Each Tablet, 1 TAB PO DAILY, (Reported) Phenazopyridine HCl (Pyridium) 200 Mg Tablet, 1 TAB PO TID for urinary discomfort Sodium Phosphate,Marathon-Dibasic (Fleet Enema) 133 Ml Enema, 1 KELVIN GA BID, (Reported) Tamsulosin HCl (Flomax) 0.4 Mg Capsule, 0.4 MG PO DAILY, (Reported) Trazodone HCl (Trazodone HCl) 150 Mg Tablet, 150 MG PO QHS, (Reported) Scheduled PRN Acetaminophen (Acetaminophen) 325 Mg Tablet, 650 MG PO Q4H PRN for PAIN LEVEL 1- 4, (Reported) Albuterol Sulfate (Proair Hfa) 8.5 Gm Hfa.aer.ad, 2 PUFF INH Q4H PRN for SHORTNESS OF BREATH, (Reported) Allergies Coded Allergies: morphine (Verified Adverse Reaction, Mild, severe headache , 12/27/20) MOLINA PORTER MD Dec 28, 2020 11:49
== END 2020-12-28 12:31 | disposition home or self-care (01) | DRG 669 ==
LOC: M ED 20:33 → M ED INP 12-27 01:05 → ENRESERV 12-27 01:59 → M MSPAV 12-27 02:20
PROVIDERS: ADMIT Internal Medicine; ATTEND Internal Medicine
PROC: 0TC68ZZ Extirpation of Matter from Right Ureter, Via Natural or Artificial Opening Endoscopic (ICD-10-PCS; principal; 2020-12-27 12:00)
DX: N20.1 Calculus of ureter (principal); N17.9 Acute kidney failure, unspecified; F41.9 Anxiety disorder, unspecified; E55.9 Vitamin D deficiency, unspecified; K59.00 Constipation, unspecified; Z79.899 Other long term (current) drug therapy; D64.9 Anemia, unspecified; D69.6 Thrombocytopenia, unspecified; F32.9 Major depressive disorder, single episode, unspecified

== ENCOUNTER → 2021-12-24 | Outpatient (CLI) | payer OTHER ==
[~2021-12-24] MED LIST changes: +ACET1TAB55 PO; +D32000CA PO; +FERR325T3 PO; +FLEEENE12 PR; +PROAAER10 INH; +PYRI1TAB5 PO; +TRAZ1TAB14 PO; +VITMTA PO
== END ==
LOC: M WHC 11:24
PROVIDERS: ATTEND Technician, Other
DX: Z12.31 Encounter for screening mammogram for malignant neoplasm of breast (principal)